=== PATIENT | male | born 1965 | race American Indian/Alaskan Native ===

== ENCOUNTER 2017-11-29 08:43 | Emergency (ER) | payer MEDICAID ==
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
[2017-11-29] MEDS ORDERED: Oxycodone/Acetaminophen 5/325 mg Tab PO STA (09:53)
[2017-11-29] MEDS ORDERED: Oxycodone/Acetaminophen 5/325 mg Tab ONE (10:06)
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
--- NOTE | 2017-11-29 11:37 | RAD ---
PROCEDURE: Right Foot Radiographs. HISTORY: trauma COMPARISON: None available. FINDINGS: BONES: Partially imaged distal fibular fracture with associated soft tissue swelling. The remainder the visualized osseous structures appear intact without acute displaced fracture. JOINTS: No dislocation. SOFT TISSUES: Soft tissue swelling. No evidence of radiopaque foreign body. OTHER FINDINGS: None. IMPRESSION: Partially imaged distal fibular fracture with associated soft tissue swelling ; please refer to right ankle radiographs performed 11/29/17 for more detailed discussion.
[2017-11-29 11:59] VITALS: BP 152/92; PULSE 84; RESP 17; TEMP 98.5
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
[2017-11-30 09:39] VITALS: O2SAT 98
== END 2017-11-29 11:59 | disposition home or self-care (01) ==
LOC: C.ER 08:43
DX: S82.431A Displaced oblique fracture of shaft of right fibula, initial encounter for closed fracture (principal); W01.0XXA Fall on same level from slipping, tripping and stumbling without subsequent striking against object, initial encounter; Y92.9 Unspecified place or not applicable
CPT/HCPCS: 73610; 73630; 97116; 97161; 99283; G8978; G8979; G8980

== ENCOUNTER 2017-12-06 12:06 | Emergency (ER) | payer MEDICAID ==
[2017-12-06 12:51] VITALS: BP 122/78; PULSE 100; RESP 18; TEMP 98.4; O2SAT 99
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
[2017-12-06] MEDS ORDERED: Oxycodone/Acetaminophen 5/325 mg Tab PO STA (13:43)
[2017-12-06] MEDS ORDERED: Oxycodone/Acetaminophen 5/325 mg Tab ONE (14:02)
== END 2017-12-06 14:20 | disposition home or self-care (01) ==
LOC: C.ER 12:06
DX: S82.891G Other fracture of right lower leg, subsequent encounter for closed fracture with delayed healing (principal); X58.XXXD Exposure to other specified factors, subsequent encounter

== ENCOUNTER 2017-12-20 06:11 | Day surgery (SDC) | payer MEDICAID ==
[2017-12-16 12:32] VITALS: BMI 32.5
[2017-12-20] MEDS ORDERED: Lidocaine 1% Inj (20ml) ONE (07:24)
[2017-12-20] MEDS ORDERED: Bacitracin Ointment 30 GM TUBE ONE (07:27)
[2017-12-20] MEDS ORDERED: ceFAZolin IV 2 gm in Dextrose 2 GM/50 ML BAG IVPB ONE (07:45)
[2017-12-20] MEDS: Bupivacaine HCl 0.25% PF (10 ml) Inj ONE ×2 (07:49→10:00)
[2017-12-20] MEDS ORDERED: Lactated Ringer's 1,000 ML IV ONE ×2 (07:49)
[2017-12-20] MEDS ORDERED: Midazolam 2 MG/2 ML VIAL ONE (07:52)
[2017-12-20] MEDS ORDERED: Propofol 10 mg/ml Inj (20 ML) ONE (07:53)
[2017-12-20] MEDS ORDERED: Oxycodone/Acetaminophen 5/325 mg Tab PO PRN ×2 (10:32)
[2017-12-20] MEDS ORDERED: ceFAZolin IV 1 gm in Dextrose 0 GM/0 ML BAG IVPB ONE (10:37)
--- NOTE | 2017-12-20 10:38 | PCM.SURG1 ---
Surgeon's Initial Post Op Note - Surgeon's Notes Surgeon: Dr. Martinez Moto Mix Operator: Dr. Marc Burns, PGY-3; Dr. Luis Alberto Chase PGY-2; Dr. Lizzie Hernandez PGY-2 Type of Anesthesia: General LMA, Block Regional Anesthesia Administered By: JACQUIE Don Pre-Operative Diagnosis: displaced right ankle fractuere; abrasion of right anterior leg (present on SDS admission) Operative Findings: see operative report Post-Operative Diagnosis: same Operation Performed: ORIF right ankle fracture, application of betadine gauze right anterior leg abrasion (present on SDS admission) Specimen/Specimens Removed: none Estimated Blood Loss: EBL {In ML}: 10 Blood Products Given: N/A Drains Used: No Drains Post-Op Condition: Good Date of Surgery/Procedure: 12/20/17 Time of Surgery/Procedure: 08:00
[2017-12-20] MEDS ORDERED: Bupivacaine HCl 0.5% PF (10 ml) Inj ONE (11:39)
--- NOTE | 2017-12-20 12:19 | RAD ---
PROCEDURE: Right Ankle Radiographs. Two views HISTORY: Status post right ankle surgery COMPARISON: None available. FINDINGS: Overlying cast obscures evaluation of the underlying osseous structures. BONES: Metallic plate and screw fixation of the distal fibula with faintly lucent fracture line evident. Remainder the visualized osseous structures appear unremarkable. JOINTS: No dislocation. SOFT TISSUES: Soft tissue swelling. Subcutaneous emphysema. No evidence of radiopaque foreign body. OTHER FINDINGS: None. IMPRESSION: Postsurgical plate and screw fixation of the distal fibula with associated soft tissue swelling overlying cast. Subcutaneous emphysema consistent with recent postsurgical status.
[2017-12-20 12:48] VITALS: BP 117/66; PULSE 77; RESP 18; TEMP 97.9; O2SAT 100
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
== END 2017-12-20 13:35 | disposition home or self-care (01) ==
LOC: C.SDS 06:11
PROVIDERS: ATTEND Podiatrist Foot & Ankle Surgery
DX: S82.61XA Displaced fracture of lateral malleolus of right fibula, initial encounter for closed fracture (principal); S80.921A Unspecified superficial injury of right lower leg, initial encounter; X58.XXXA Exposure to other specified factors, initial encounter; Y92.9 Unspecified place or not applicable
CPT/HCPCS: 27792; 73600; 97161; C1713; G8978; G8979; G8980; J0690; J2250; J2704; J3010; J7120